=== PATIENT | female | born 1965 | race Caucasian/White ===

== ENCOUNTER 2020-01-15 22:01 | Observation (INO) ==
[2020-01-15] MEDS ORDERED: ONDANSETRON INJ 2 MG/ML 2 ML VIAL IV STA (22:09)
[2020-01-15] MEDS ORDERED: HYDROmorphone INJ 0.5 MG/0.5 ML SYR IV STA ×2 (22:09→22:21)
[2020-01-15] MEDS ORDERED: ONDANSETRON INJ 2 MG/ML 2 ML VIAL ONE (22:11)
[2020-01-15] MEDS ORDERED: SODIUM CHLORIDE 0.9% 1000ML 1,000 ML IV SCH ×2 (22:15→23:30)
--- NOTE | 2020-01-15 22:18 | Emergency Department Note ---
History of Present Illness General Chief complaint: Flank Pain Stated complaint: APPENDIX BURST Time Seen by Provider: 01/15/20 22:07 History of Present Illness Maximum Pain Intensity: 10 This is a 54-year-old female that presents to the emergency department via private vehicle with complaints of "left-sided flank pain". The patient states that about 45 minutes prior to arrival she began with abrupt onset of left-sided flank pain. No associated nausea, vomiting or diarrhea. Pain is a 10/10. She denies any chest pain, shortness of breath, fevers or chills. There is no pertinent past medical history, surgeries or allergies. No trouble urinating. No aggravating or alleviating factors. Home Medications Home Medications Medication Instructions Recorded Confirmed Type No Known Home Medications 01/15/20 01/15/20 History Allergies Allergy/AdvReac Type Severity Reaction Status Date / Time codeine Allergy Severe migraine, Verified 01/15/20 22:58 n/v oxycodone Allergy Severe migraine, Verified 01/15/20 22:58 n/v Past Med/Surg History Medical History No pertinent past medical history Surgical History No pertinent past surgical history Social History Preferred Language: Greek Communication Ability: Effective Beliefs That Will Affect Care: None Current Living Situation: Alone Other Information That Helps Us Care for You: No Feels Safe at Home: Yes Safety Concerns: Feels Safe At This Time Smoking Status: Never smoker Hx Alcohol Use: Yes Alcohol type: wine Hx Substance Use: No Review of Systems A total of 10 systems reviewed and were otherwise negative Physical Exam Vital Signs Vital Signs - 24 hr 01/15/20 22:04 01/15/20 22:18 01/15/20 23:21 Temperature 36.4 C L Temperature Source Oral Pulse Rate 80 73 Pulse Rate [Finger] 75 Pulse Rhythm Regular Pulse Rhythm [Finger] Regular Pulse Strength [Finger] Normal Respiratory Rate 20 20 18 Respiratory Effort / Characteristics Non-Labored Spontaneous Non-Labored Spontaneous Respiratory Depth Normal Normal Respiratory Pattern Regular Blood Pressure 141/87 H Blood Pressure [Right Arm] 123/80 Blood Pressure Mean 105 Blood Pressure Mean [Right Arm] 94 Blood Pressure Position Sitting Blood Pressure Position [Right Arm] Lying Pulse Oximetry 100 99 99 Oxygen Delivery Method Nasal Cannula Room Air Nasal Cannula Oxygen Flow Rate 2 Sepsis Recent Fever Within 48 Hours No Sepsis New/Unexplained Change in Mental Status No Sepsis Action Taken by Nursing No Action Required Oxygen Flow Rate - Titration Pulse Oximetry Post Tiitration 01/15/20 23:22 01/15/20 23:32 Temperature Temperature Source Pulse Rate Pulse Rate [Finger] 62 Pulse Rhythm Pulse Rhythm [Finger] Regular Pulse Strength [Finger] Normal Respiratory Rate 18 Respiratory Effort / Characteristics Non-Labored Spontaneous Respiratory Depth Normal Respiratory Pattern Regular Blood Pressure Blood Pressure [Right Arm] 116/70 Blood Pressure Mean Blood Pressure Mean [Right Arm] 85 Blood Pressure Position Blood Pressure Position [Right Arm] Lying Pulse Oximetry 87 L 97 Oxygen Delivery Method Room Air Room Air Oxygen Flow Rate 0 Sepsis Recent Fever Within 48 Hours Sepsis New/Unexplained Change in Mental Status Sepsis Action Taken by Nursing Oxygen Flow Rate - Titration 2 Pulse Oximetry Post Tiitration 99 VITAL SIGNS - Vital signs and nursing notes were reviewed. Stable and afebrile. GENERAL -54-year-old female appearing her stated age who appears to be in a tremendous amount of pain and is writhing on the examination bed holding her left flank/abdomen.. Communicates well with provider and answers questions appropriately. SKIN - Without rashes. No meningeal or petechial rash. HEAD - NC/AT. EYES - PERRL with EOMI bilaterally. Sclera anicteric. EARS - No deformities of external structures noted on gross examination bilaterally. NOSE - Midline and without cyanosis. No epistaxis or purulent drainage noted. MOUTH/OROPHARYNX - Without perioral cyanosis. NECK - Neck with FROM. Supple to palpation. No nuchal rigidity. LUNGS - Chest wall symmetric without accessory muscle use, intercostals retra ctions, or central cyanosis. Normal vesicular breath sounds CTA B/L. No wheezes, rales, or rhonchi appreciated. CARDIAC - RRR with S1/S2. No murmur, rubs, or gallops appreciated. ABDOMEN - Abdominal contour normal without pulsations or visible masses. BS normoactive all four quadrants. No tenderness, palpable masses, hepatosplenomegaly, or ascites noted. EXTREMITIES - No clubbing or peripheral cyanosis. No pretibial edema present. +5/5 strength noted in UE/LE bilaterally. NEUROLOGIC - Cranial nerves II through XII grossly intact. Sensory intact to light touch throughout. PSYCH - A&O, and cooperates fully with examiner. Pt is very pleasant and interacts well with examiner. Course Administered Medications Sodium Chloride (Nss 1000ml) 1,000 mls @ 125 mls/hr IV .Q8H PEDRO Stop: 02/15/20 01:20 Last Admin: 01/16/20 02:25 Dose: 125 mls/hr Documented by: [id number] Discontinued Medications Hydromorphone HCl (Dilaudid) 0.5 mg IV NOW STA Stop: 01/15/20 22:10 Last Admin: 01/15/20 22:13 Dose: 0.5 mg Documented by: [id number] Hydromorphone HCl (Dilaudid) 0.5 mg IV NOW STA Stop: 01/15/20 22:22 Last Admin: 01/15/20 22:23 Dose: 0.5 mg Documented by: [id number] Sodium Chloride (Nss 1000ml) 1,000 mls @ 999 mls/hr IV .Q1H1M PEDRO Stop: 01/15/20 23:15 Last Infusion: 01/15/20 23:18 Dose: 0 mls/hr Documented by: [id number] Admin: 01/15/20 22:13 Dose: 999 mls/hr Documented by: [id number] Sodium Chloride (Nss 1000ml) 1,000 mls @ 999 mls/hr IV .Q1H1M PEDRO Stop: 01/16/20 00:30 Last Infusion: 01/16/20 00:11 Dose: 0 mls/hr Documented by: [id number] Admin: 01/15/20 23:30 Dose: 999 mls/hr Documented by: [id number] Ketorolac Tromethamine (Toradol) 30 mg IV NOW ONE Stop: 01/16/20 00:05 Last Admin: 01/16/20 00:11 Dose: 30 mg Documented by: [id number] Ondansetron HCl (Zofran) 4 mg IV NOW STA Stop: 01/15/20 22:10 Last Admin: 01/15/20 22:13 Dose: 4 mg Documented by: [id number] Ondansetron HCl (Zofran) Confirm Administered Dose 4 mg .ROUTE .STK-MED ONE Stop: 01/15/20 22:12 Last Admin: 01/15/20 22:13 Dose: Not Given Documented by: [id number] Tamsulosin HCl (Flomax) 0.4 mg PO NOW ONE Stop: 01/15/20 23:24 Last Admin: 01/15/20 23:30 Dose: 0.4 mg Documented by: [id number] Medical Decision Making Laboratory Data Result diagrams: 01/15/20 22:10 01/15/20 22:10 Lab Results 01/15/20 01/15/20 01/15/20 Range/Units 22:10 22:10 23:34 WBC 7.64 (4.8-10.8) K/uL RBC 4.13 L (4.2-5.4) M/uL Hgb 12.3 (12.0-16.0) g/dL Hct 37.8 (37-47) % MCV 91.5 (80-100) fL MCH 29.8 (25-34) pg MCHC 32.5 (32-36) g/dL RDW Std Deviation 44.1 (36.4-46.3) fL RDW Coeff of Heladio 13.1 (11.5-14.5) % Plt Count 230 (130-400) K/uL MPV 10.4 (7.4-10.4) fL Immature Gran % (Auto) 0.3 % Neut % (Auto) 52.0 % Lymph % (Auto) 39.1 % [place] % (Auto) 6.0 % Eos % (Auto) 2.2 % Baso % (Auto) 0.4 % Immature Gran # (Auto) 0.02 (0.00-0.02) K/uL Neut # (Auto) 3.97 (1.4-6.5) K/uL Lymph # (Auto) 2.99 (1.2-3.4) K/uL [place] # (Auto) 0.46 (0.11-0.59) K/uL Eos # (Auto) 0.17 (0-0.5) K/uL Baso # (Auto) 0.03 (0-0.2) K/uL Sodium 140 (136-145) mmol/L Potassium 3.9 (3.5-5.1) mmol/L Chloride 109 H (98-107) mmol/L Carbon Dioxide 24 (21-32) mmol/L Anion Gap 7.0 (3-11) BUN 22 H (7-18) mg/dl Creatinine 0.99 (0.6-1.2) mg/dl Est Cr Clr Drug Dosing Not Reportable Est GFR ( Amer) 74.4 Est GFR (Non-Af Amer) 64.2 BUN/Creatinine Ratio 22.0 H (10-20) Glucose 128 H (70-99) mg/dl Calcium 9.2 (8.5-10.1) mg/dl Magnesium 2.1 (1.8-2.4) mg/dl Total Bilirubin 0.3 (0.2-1) mg/dl AST 24 (15-37) U/L ALT 29 (12-78) U/L Alkaline Phosphatase 74 (45-117) U/L Total Protein 7.3 (6.4-8.2) gm/dl Albumin 4.0 (3.4-5.0) gm/dl Globulin 3.3 (2.5-4.0) gm/dl Albumin/Globulin Ratio 1.2 (0.9-2) Lipase 233 (73-393) U/L Urine Color Yellow Urine Appearance Clear (Clear) Urine pH 5.0 (4.5-7.5) Ur Specific [place] 1.028 (1.000-1.030) Urine Protein Negative (Negative) Urine Glucose (UA) Negative (Negative) Urine Ketones Trace H (Negative) Urine Blood Negative (Negative) Urine Nitrite Negative (Negative) Urine Bilirubin Negative (Negative) Urine Urobilinogen Negative (Negative) Ur Leukocyte Esterase 1+ H (Negative) Urine WBC (Auto) 5-10 H (0-5) /hpf Urine RBC (Auto) 0-4 (0-4) /hpf U Hyaline Cast (Auto) 0 (0-5) /lpf U Epithel Cells (Auto) 10-20 H (0-5) /lpf Urine Bacteria (Auto) Negative (Negative) POC Ur Test (NEG) 01/15/20 Range/Units 23:34 WBC (4.8-10.8) K/uL RBC (4.2-5.4) M/uL Hgb (12.0-16.0) g/dL Hct (37-47) % MCV (80-100) fL MCH (25-34) pg MCHC (32-36) g/dL RDW Std Deviation (36.4-46.3) fL RDW Coeff of Heladio (11.5-14.5) % Plt Count (130-400) K/uL MPV (7.4-10.4) fL Immature Gran % (Auto) % Neut % (Auto) % Lymph % (Auto) % [place] % (Auto) % Eos % (Auto) % Baso % (Auto) % Immature Gran # (Auto) (0.00-0.02) K/uL Neut # (Auto) (1.4-6.5) K/uL Lymph # (Auto) (1.2-3.4) K/uL [place] # (Auto) (0.11-0.59) K/uL Eos # (Auto) (0-0.5) K/uL Baso # (Auto) (0-0.2) K/uL Sodium (136-145) mmol/L Potassium (3.5-5.1) mmol/L Chloride (98-107) mmol/L Carbon Dioxide (21-32) mmol/L Anion Gap (3-11) BUN (7-18) mg/dl Creatinine (0.6-1.2) mg/dl Est Cr Clr Drug Dosing Est GFR ( Amer) Est GFR (Non-Af Amer) BUN/Creatinine Ratio (10-20) Glucose (70-99) mg/dl Calcium (8.5-10.1) mg/dl Magnesium (1.8-2.4) mg/dl Total Bilirubin (0.2-1) mg/dl AST (15-37) U/L ALT (12-78) U/L Alkaline Phosphatase (45-117) U/L Total Protein (6.4-8.2) gm/dl Albumin (3.4-5.0) gm/dl Globulin (2.5-4.0) gm/dl Albumin/Globulin Ratio (0.9-2) Lipase (73-393) U/L Urine Color Urine Appearance (Clear) Urine pH (4.5-7.5) Ur Specific [place] (1.000-1.030) Urine Protein (Negative) Urine Glucose (UA) (Negative) Urine Ketones (Negative) Urine Blood (Negative) Urine Nitrite (Negative) Urine Bilirubin (Negative) Urine Urobilinogen (Negative) Ur Leukocyte Esterase (Negative) Urine WBC (Auto) (0-5) /hpf Urine RBC (Auto) (0-4) /hpf U Hyaline Cast (Auto) (0-5) /lpf U Epithel Cells (Auto) (0-5) /lpf Urine Bacteria (Auto) (Negative) POC Ur Test NEG (NEG) Imaging Data Radiologist's Impression: ABDOMEN AND PELVIS CT WITHOUT CONTRAST CT DOSE: 361.19 mGy.cm HISTORY: Acute left-sided flank pain L flank pain TECHNIQUE: Multiaxial CT images of the abdomen and pelvis were performed without contrast. A dose lowering technique was utilized adhering to the principles of ALARA. COMPARISON STUDY: None. FINDINGS: Mild dependent bibasilar atelectasis. No pneumatosis or pneumoperitoneum. Imaged inferior cardiac chambers are unremarkable. Spleen, pancreas, adrenal glands, gallbladder and unenhanced liver appear unremarkable. Mild left-sided hydrocele ureteral nephrosis secondary to an obstructing 5 x 3 x 5 mm calculus of the distal left ureter is noted approximately 2.5 cm proximal to the ureterovesicular junction. 4 mm nonobstructing calculus of the interpolar left kidney. 2 mm nonobstructing calculus of the superior pole right kidney. Urinary bladder, uterus and adnexa are unremarkable. Aorta and IVC are within normal limits. No adenopathy. No bowel obstruction or bowel wall thickening. Colonic diverticulosis without acute diverticulitis. Terminal ileum and appendix are unremarkable. No ascites or mesenteric inflammation. Tiny fat filled periumbilical hernia. The breast parenchyma and soft tissues are otherwise unremarkable. Degenerative changes of the spine, pelvis and hips. Mild convex right curvature of the upper lumbar spine. Transitional lumbosacral anatomy. No acute fracture. IMPRESSION: 1. Mild left-sided hydroureteronephrosis secondary to an obstructing 5 x 3 x 5 mm calculus of the distal left ureter approximately 2.5 cm proximal to the ureterovesicular junction. 2. Nonobstructing bilateral nephrolithiasis. 3. No bowel obstruction or bowel wall thickening. Normal appendix. ACT 112: Negative or not required by law. The above report was generated using voice recognition software. It may contain grammatical, syntax or spelling errors. Results electronically sent 01/15/2020 11:07 PM to: Glen Fraser PA-C Electronically signed by: Pro Jarrett M.D. 01/15/2020 11:07 PM MDM Narrative Patient was seen and evaluated as above in room A3. Review was performed of nursing notes and vital signs. After obtaining a thorough history and physical examination the above work up was performed. She presents to us today with abrupt onset of left flank pain. She is appearing to be in a fair amount of pain on examination. IV access was established. She was given IV Dilaudid and Zofran as well as fluids. She was reevaluated minimal improvement and was given more Dilaudid. She was reevaluated and feeling much better. She was placed on oxygen as she did desat into the high 80s. CT scan was obtained and did reveal a 5 x 3 x 5 calculus of the distal left ureter that was causing mild left-sided hydroureteronephrosis. She was given a copy of the report. No leukocytosis or concerning anemia. No emergent metabolic disturbance. Mild elevation of BUN at 22. Urinalysis does not reveal infection. UPT negative. Patient initially was going to be discharged as it was her preference but the pain continued to return and she was given Toradol and she preferred to stay in the hospital which I believe is reasonable given her level of pain at this time. I consulted the hospitalist. Please refer to further documentation regarding her stay. In the evaluation and treatment of this patient the following differential diagnosis entertained: Fracture, dislocation, subluxation, cauda equina syndrome, AAA, diverticulitis, appendicitis, torsion, ureteral calculi, osteomyelitis, piriformis syndrome, strain, sprain, among others. Impression & Plan Ureteral obstruction, left, Ureteral calculus, left, Hydronephrosis Discharge Plan Visit Data *Final* Discharge Date/Time: 01/16/20 01:04 Chief Complaint: Flank Pain Stated Complaint: APPENDIX BURST ED Provider: Edmond Tinsley ED Midlevel Provider: Glen Fraser Discharge Problem: Ureteral obstruction, left, Ureteral calculus, left, Hydronephrosis Patient Disposition: Admitted As Inpatient Discharge Instructions Interventions: ED Discharge Assessment Last Done: 01/16/20 01:04
[2020-01-15 22:27] LABS: Basophils # (auto) 0.03 K/uL (0-0.2); Basophils % (auto) 0.4 %; Eosinophils # (auto) 0.17 K/uL (0-0.5); Eosinophils % (auto) 2.2 %; Hematocrit (blood only) 37.8 % (37-47); Hemoglobin 12.3 g/dL (12.0-16.0); Immature Granulocytes # (auto) 0.02 K/uL (0.00-0.02); Immature Granulocytes % (auto) 0.3 %; Lymphocytes # (auto) 2.99 K/uL (1.2-3.4); Lymphocytes % (auto) 39.1 %; Mean Corpuscular Hemoglobin 29.8 pg (25-34); Mean Corpuscular Hgb Conc 32.5 g/dL (32-36); Mean Corpuscular Volume 91.5 fL (80-100); Mean Platelet Volume 10.4 fL (7.4-10.4); Monocytes # (auto) 0.46 K/uL (0.11-0.59); Neutrophils # (auto) 3.97 K/uL (1.4-6.5); Platelet Count 230 K/uL (130-400); RDW Coefficient of Variation 13.1 % (11.5-14.5); RDW Standard Deviation 44.1 fL (36.4-46.3); Red Blood Count 4.13 M/uL (4.2-5.4); White Blood Count 7.64 K/uL (4.8-10.8)
[2020-01-15 22:45] LABS: Alanine Aminotransferase 29 U/L (12-78); Aspartate Aminotransferase 24 U/L (15-37); Blood Urea Nitrogen 22 mg/dl (7-18); Calcium 9.2 mg/dl (8.5-10.1); Carbon Dioxide 24 mmol/L (21-32); Chloride 109 mmol/L (98-107); Est GFR (African American) 74.4; Est GFR (Non-African American) 64.2; Glucose 128 mg/dl (70-99); Lipase 233 U/L (73-393); Magnesium 2.1 mg/dl (1.8-2.4); Potassium 3.9 mmol/L (3.5-5.1); Sodium 140 mmol/L (136-145)
[2020-01-15 22:54] LABS: Albumin Globulin Ratio 1.2 (0.9-2); Alkaline Phosphatase 74 U/L (45-117); Bilirubin,Total 0.3 mg/dl (0.2-1); Globulin 3.3 gm/dl (2.5-4.0); Total Protein 7.3 gm/dl (6.4-8.2)
--- NOTE | 2020-01-15 23:08 | CT Scan Report ---
ABDOMEN AND PELVIS CT WITHOUT CONTRAST CT DOSE: 361.19 mGy.cm HISTORY: Acute left-sided flank pain L flank pain TECHNIQUE: Multiaxial CT images of the abdomen and pelvis were performed without contrast. A dose lo wering technique was utilized adhering to the principles of ALARA. COMPARISON STUDY: None. FINDINGS: Mild dependent bibasilar atelectasis. No pneumatosis or pneumoperitoneum. Imaged inferior cardiac mak mbers are unremarkable. Spleen, pancreas, adrenal glands, gallbladder and unenhanced liver appear unr emarkable. Mild left-sided hydrocele ureteral nephrosis secondary to an obstructing 5 x 3 x 5 mm calc ulus of the distal left ureter is noted approximately 2.5 cm proximal to the ureterovesicular junctio n. 4 mm nonobstructing calculus of the interpolar left kidney. 2 mm nonobstructing calculus of the blair perior pole right kidney. Urinary bladder, uterus and adnexa are unremarkable. Aorta and IVC are with in normal limits. No adenopathy. No bowel obstruction or bowel wall thickening. Colonic diverticulosis without acute diverticulitis. T erminal ileum and appendix are unremarkable. No ascites or mesenteric inflammation. Tiny fat filled p eriumbilical hernia. The breast parenchyma and soft tissues are otherwise unremarkable. Degenerative changes of the spine, pelvis and hips. Mild convex right curvature of the upper lumbar spine. Transit ional lumbosacral anatomy. No acute fracture. IMPRESSION: 1. Mild left-sided hydroureteronephrosis secondary to an obstructing 5 x 3 x 5 mm calculus of the dis edward left ureter approximately 2.5 cm proximal to the ureterovesicular junction. 2. Nonobstructing bilateral nephrolithiasis. 3. No bowel obstruction or bowel wall thickening. Normal appendix. ACT 112: Negative or not required by law. The above report was generated using voice recognition software. It may contain grammatical, syntax o r spelling errors. Results electronically sent 01/15/2020 11:07 PM to: Glen Fraser PA-C Electronically signed by: Pro Jarrett M.D. 01/15/2020 11:07 PM
[2020-01-15] MEDS ORDERED: TAMSULOSIN HCL 0.4 MG CAP PO ONE (23:23)
[2020-01-15 23:50] LABS: Appearance Urine Clear (Clear); Bacteria Urine Automated Negative (Negative); Bilirubin Urine Negative (Negative); Blood Urine Negative (Negative); Cast Urine Automated 0 /lpf (0-5); Color Urine Yellow; Glucose Urine UA Negative (Negative); Ketones Urine Trace (Negative); Leukocyte Esterase Urine 1+ (Negative); Nitrite Urine Negative (Negative); Protein Urine Negative (Negative); RBC Urine Automated 0-4 /hpf (0-4); Specific Gravity Urine 1.028 (1.000-1.030); Urobilinogen Urine Negative (Negative)
[2020-01-16] MEDS ORDERED: KETOROLAC 30 MG/ML VIAL IV ONE (00:04)
[2020-01-16] MEDS ORDERED: KETOROLAC TROMETHAMINE 15 MG/ML VIAL IV PRN (01:21)
[2020-01-16] MEDS ORDERED: POLYETHYLENE (MIRALAX) 17 GM PACK PO PRN (01:21)
[2020-01-16] MEDS ORDERED: ACETAMINOPHEN 325 MG TAB PO PRN (01:21)
[2020-01-16] MEDS ORDERED: HYDROmorphone INJ 0.5 MG/0.5 ML SYR IV PRN (01:21)
[2020-01-16] MEDS ORDERED: SODIUM CHLORIDE 0.9% 1000ML 1,000 ML IV SCH (01:21)
[2020-01-16] MEDS ORDERED: ONDANSETRON INJ 2 MG/ML 2 ML VIAL IV PRN (01:21)
--- NOTE | 2020-01-16 02:06 | History and Physical Report ---
DATE OF ADMISSION: 01/15/2020 CHIEF COMPLAINT: Left flank pain. HISTORY OF PRESENT ILLNESS: This is 54-year-old female with no significant past medical history. The patient is from [place], visiting [facility] to her sister's place, presents with severe left flank pain, and nausea. Denies any fever, chills. CT of abdomen and pelvis done in the ER which showed 5mm left obstructing ureteral stone. The patient was given initially Dilaudid couple of doses and Flomax,then pain subsided and, initially plan was to send her home and follow as outpatient, but the pain came back and given a dose of Toradol, at that time, it was decided to observe the patient in the hospital. The patient states the Toradol did not helped her much, but does not want any more pain medication currently. Denies any other complaints. Denies any headache, no dizziness, no blurred visions, no earache, no runny nose, no sore throat, no cough, no fever, no chills, no dysphagia. Otherwise, appetite is okay. No chest pain, no shortness of breath. Normal bowel and bladder movements. No hematuria or burning micturition. No swelling in the legs, no rash, no easy bleeding or easy bruising. Otherwise, active. She lives alone in [place]. Denies any history of kidney stones in the past but says her mother had history of kidney stones. ALLERGIES: TO CODEINE, OXYCODONE CAUSES MIGRAINE. PAST MEDICAL HISTORY: Denies any past medical history. PAST SURGICAL HISTORY: Denies any past surgical history. MEDICATIONS: Denies any medications. FAMILY HISTORY: Mother had kidney stones. Father had heart disorder and brother had brain aneurysm. SOCIAL HISTORY: Denies any smoking, alcohol rarely. Lives alone, she lives in [place], coming to visit her sister. REVIEW OF SYMPTOMS: As per HPI. Rest of review of symptoms negative. PHYSICAL EXAMINATION: GENERAL: The patient is of moderate build, not in acute distress, seemed to be in pain. VITAL SIGNS: Temperature 36.4, pulse 62, respiratory rate 18, blood pressure 116/70, oxygen 97% on room air. HEENT: No pallor, no icterus. Pupils equal, round, reactive to light. NECK: No neck masses. Supple. CARDIOVASCULAR: S1, S2 heard, regular rate and rhythm, no murmur, no gallop. RESPIRATORY SYSTEM: Normal AP diameter. No accessory muscle use. No wheezing, no crackles. ABDOMEN: Soft, bowel sounds present. Left lower quadrant tenderness present. Mild guarding, no rigidity. No CVA tenderness present. No distention. CENTRAL NERVOUS SYSTEM: Cranial nerves II-XII grossly intact. Nonfocal. EXTREMITIES: No edema, no erythema. LABORATORY DATA: WBC 7.6, hemoglobin 12.3, hematocrit 37.8, platelets 230. Sodium 140, potassium 3.9, chloride 109, bicarbonate 24, BUN 22, creatinine 0.9, serum glucose 128, calcium 9.2, magnesium 2.1, total bilirubin 0.3, AST 24, ALT 29, alkaline phosphatase 74, lipase 233. Urinalysis, trace ketones, +1 leukocyte esterase. Urine bacteria negative. POC urine test negative. CT of abdomen and pelvis shows mild left hydroureteronephrosis secondary to an obstructing 5 mm calculus of the distal left ureter approximately 2.5 cm proximal to UVJ junction, nonobstructing bilateral nephrolithiasis, no bowel obstruction or bowel wall thickening, normal appendix. ASSESSMENT AND PLAN: This is a 54-year-old female who presents with severe left flank pain and found to have obstructing 5 mm left ureteral stone. 1. Renal colic, severe left flank pain. CAT scan showing 5 mm left ureteral stone, 2.5 cm above UVJ causing mild hydroureteronephrosis. Will monitor in medical floor, pain control with IV Dilaudid p.r.n., IV Toradol p.r.n. We will keep her n.p.o., IV fluids, on IV normal saline 125 mL per hour, IV antiemetics, and consult urology in the a.m. for further recommendations. UA shows +1 leukocyte esterase, but no bacteria seen. No leukocytosis and afebrile. We will follow the urine cultures. 2. Deep venous thrombosis prophylaxis, sequential compression devices. DISPOSITION: Admit to medical floor. Expect to discharge home and follow with family doctor. Level 1 full code. MTDD
[2020-01-16 07:27] VITALS: BP 100/60; PULSE 76; TEMP 97.5; O2SAT 96
--- NOTE | 2020-01-16 07:53 | Urology Consultation ---
Date of Consultation January 16, 2020 Assessment & Plan (1) Ureteral calculus, left: (2) Ureteral obstruction, left: 54yo F with 5mm distal left stone, mild hydronephrosis; bilateral renal stones. Stable kidney function, pain controlled with toradol. Afebrile, VSS. No surgical intervention required today given pt's stable state. Wishes to discharge home and attempt to pass spontaneously as she is from [place] and flies home tomorrow. She understands if she develops a fever/severe pain she must seek medical attention. Will check KUB today for visibility/check migration. Please provide CT and KUB imaging discs and reports for pt prior to discharge to follow with Urologist at home. Okay to discharge home with flomax, empiric antibiotics, toradol PO as she cannot have narcotic pain medication due to side effects. Case discussed with Dr. Ramires and agreeable to plan. Primary team made aware, okay to provide diet. Thank you for allowing us to participate in the acute care of Ms. Pickering. Please reconsult us with additional questions, concerns or changes in patient status. History of Present Illness Reason for Consultation: stone Requesting Physician: stone Attending Physician: Steven Thomas MD History of Present Illness 54yo F with no major past medical history presents to [facility] for acute right flank pain, 08/21. Diagnosed with 5mm distal left ureteral stone, mild hydronephrosis. bilateral renal stones. Cr and WBC WNL. Pain controlled with toradol, flomax and IVFs. Able to get some rest through the night, feeling well today. Straining all urine, denies spontaneous passage. Friend at bedside. States her mother also with kidney stones. Pts first stone however follows with urologist back home in [place] for UTIs, bladder pain. Plans to fly home tomorrow. Allergies Allergy/AdvReac Type Severity Reaction Status Date / Time codeine Allergy Severe migraine, Verified 01/15/20 22:58 n/v oxycodone Allergy Severe migraine, Verified 01/15/20 22:58 n/v Home Medications Home Medications Medication Instructions Recorded Confirmed Type No Known Home Medications 01/15/20 01/15/20 History acetaminophen 1,000 mg PO Q8H PRN #60 tab 01/16/20 Rx amoxicillin 500 mg PO TID #21 cap 01/16/20 Rx ketorolac 10 mg PO Q8H PRN #10 tab 01/16/20 Rx tamsulosin 0.4 mg PO HS #7 cap 01/16/20 Rx Patient History Medical History No pertinent past medical history Surgical History No pertinent past surgical history Social History Preferred Language: Thai Communication Ability: Effective Beliefs That Will Affect Care: None Current Living Situation: Alone Other Information That Helps Us Care for You: No Feels Safe at Home: Yes Safety Concerns: Feels Safe At This Time Smoking Status: Never smoker Hx Alcohol Use: Yes Alcohol type: wine Hx Substance Use: No Review of Systems Review of Systems: All systems reviewed & are unremarkable except as noted in HPI & below Constitutional: no fever and no chills Eyes: no problem reported Ear, Nose, Mouth, Throat: no ear pain and no dizziness Respiratory: no cough and no dyspnea Cardiovascular: no chest pain and no dyspnea Gastrointestinal: no abdominal pain, no nausea and no vomiting Musculoskeletal: no neck pain and no joint pain Integumentary: no acne and no rash Neurologic: no falls and no numbness Psychiatric: no hopelessness Endocrine: no polydipsia and no polyphagia Hematologic / Lymphatic: no coagulopathy and no lymphadenopathy Allergy / Immunological: no lip swelling Physical Exam Constitutional: comfortable; no acute distress, not ill appearing, no altered mental status and not lethargic Eyes: no nystagmus ENMT: Ears: no hearing impairment Neck: trachea midline Respiratory: no respiratory distress, does not use accessory muscles, no cough and no grunting Cardiovascular: Vessels: no JVD Extremities: no edema Chest (Breasts): Chest: normal inspection of chest Gastrointestinal (Abdomen): Inspection/Auscultation: abdomen not distended and no abdominal edema Percussion/Palpation: abdomen soft; abdomen nontender Musculoskeletal: no cyanosis or clubbing, extremities motor strength 5/5 Head/Neck/Chest: normocephalic and head atraumatic Extremities: extremities normal to inspection Skin: no rashes, warm and dry Neurologic: awake; not confused and not obtunded Psychiatric: Orientation: alert and oriented x 3 Eye Contact: good eye contact Affect: no depressed affect Lymphatic: no lymphadenopathy and no lymphedema Results & Data Vital Signs (Past 12 Hours) Vital Signs Temp Pulse Pulse Resp BP BP Pulse Ox 01/16/20 07:26 36.4 C L 76 16 100/60 96 01/16/20 01:22 36.7 C 67 20 131/75 97 01/15/20 23:32 62 18 116/70 97 01/15/20 23:22 87 L 01/15/20 23:21 75 18 123/80 99 01/15/20 22:18 73 20 99 01/15/20 22:04 36.4 C L 80 20 141/87 H 100 PG Care Time/CCT Total # of Minutes Spent Total Time Spent with Patient: Total time spent is greater than 50% in coordination of care (as documented) at patient's floor/unit and/or counseling patient: Coding Level of Care Code 28819 Inpt Consult Level 4 Diagnoses Ureteral calculus, left N20.1 Ureteral obstruction, left N13.5
--- NOTE | 2020-01-16 10:10 | XRay Report ---
XR KUB/Abdomen 1 view CLINICAL HISTORY: 54 years-old Female presenting with left distal stone migration. TECHNIQUE: Single supine view of the abdomen was obtained. COMPARISON: CT of abdomen and pelvis from 01/15/2020. FINDINGS: Nonobstructive bowel gas pattern. No gross pneumoperitoneum. Left nephrolithiasis evident on CT not well appreciated on this radiograph secondary to bowel gas and stool pattern. The recently demonstrated distal left ureteral calculus remains in place measure appr oximately 5 mm. No radiographic evidence of right renal or right ureteral calculi. Mild dextroscoliosis of the lumbar spine. Lung bases clear. IMPRESSION: 1. Unchanged position of the distal left ureteral calculus. 2. Underlying left nephrolithiasis evident on CT not well demonstrated on this radiograph. ACT 112: Negative or not required by law. Results electronically sent 01/16/2020 10:08 AM to: ACOSTA Graves Electronically signed by: Jean Dorsey M.D. 01/16/2020 10:08 AM
--- NOTE | 2020-01-16 10:59 | Hospitalist Progress Note ---
Date of Service January 16, 2020 Assessment & Plan (1) Ureteral calculus, left: Presented to ED with severe left flank pain and nausea. No fever, chills, dysuria, hematuria. CT of abdomen pelvis demonstrated 5 mm calculus in the distal ureter with associated mild left hydronephrosis. Patient admitted for further evaluation and management. Received IV fluids, antiemetics, analgesics. Pain resolved. Follow-up KUB demonstrated calculus in left distal ureter, position unchanged. Seen in consultation by Urology. Patient is from [place], visiting her sister in the [facility]. She has plans to return to [place] tomorrow and therefore it was felt best not to undergo any procedures at this time. Asymptomatic morning of discharge. No fever. UA does not appear to be infected. Urology recommends prophylactic antibiotic therapy, tamsulosin, analgesics. Strain urine and save calculus for analysis if passed. Follow-up with PCP and, if necessary, Urology upon returning home. Patient was given copies of diagnostic imaging studies to share with her providers in [place]. (2) Ureteral obstruction, left: As noted above. (3) Hydronephrosis: As noted above. (4) DVT prophylaxis: Low risk for VTE per IMPROVE Risk Assessment Model. VTE prophylaxis not indicated. Ambulating. (5) Discharge planning issues: Discharge to home. Follow-up with her PCP in [place]: Dr. Dalia Squires [address] [place] [address] (Tried to call Dr. Squires x 2 to give her update, but no answer.) Admission and Anticipated Discharge Date Admission Date: January 16, 2020 Subjective Recheck for ureteral calculus. Patient seen in their room around 1140. Feels much better. No flank or abdominal pain. No fever, chills, sweats. No dysuria or hematuria. Anxious to go home. Physical Exam Constitutional: no acute distress Respiratory: no respiratory distress Auscultation: lungs clear to auscultation bilaterally Cardiovascular: Rate/Rhythm: regular rate and regular rhythm Vessels: no JVD Extremities: no calf tenderness and no edema Gastrointestinal (Abdomen): normal bowel sounds, soft, nontender, no hepatospl enomegaly Musculoskeletal: mild left CVA tenderness Skin: no rashes, warm and dry Psychiatric: Orientation: alert and oriented x 3 Results & Data ([facility]) Vital Signs (Past 12 Hours) Vital Signs Temp Pulse Resp BP Pulse Ox 01/16/20 07:26 36.4 C L 76 16 100/60 96 01/16/20 01:22 36.7 C 67 20 131/75 97 01/15/20 23:32 62 18 116/70 97 01/15/20 23:22 87 L 01/15/20 23:21 75 18 123/80 99 Laboratory Results 01/15/20 22:10 01/15/20 22:[address] ABDOMEN + PELVIS IMPRESSION: 1. Mild left-sided hydroureteronephrosis secondary to an obstructing 5 x 3 x 5 mm calculus of the distal left ureter approximately 2.5 cm proximal to the ureterovesicular junction. 2. Nonobstructing bilateral nephrolithiasis. 3. No bowel obstruction or bowel wall thickening. Normal appendix. ACT 112: Negative or not required by law. The above report was generated using voice recognition software. It may contain grammatical, syntax or spelling errors. Electronically signed by: Pro Jarrett M.D. 01/15/2020 11:07 PM KUB IMPRESSION: 1. Unchanged position of the distal left ureteral calculus. 2. Underlying left nephrolithiasis evident on CT not well demonstrated on this radiograph. ACT 112: Negative or not required by law. Electronically signed by: Jean Dorsey M.D. 01/16/2020 10:08 AM
[2020-01-16] MEDS ORDERED: TAMSULOSIN HCL 0.4 MG CAP PO SCH (21:00)
--- NOTE | 2020-01-17 08:01 | Discharge Summary ---
Date of Service Date of Admission: 01/16/20 Date of Discharge: 01/16/20 Admission HPI Per Admitting Provider This is 54-year-old female with no significant past medical history. The patient is from [place], visiting [facility] to her sister's place, presents with severe left flank pain, and nausea. Denies any fever, chills. CT of abdomen and pelvis done in the ER which showed 5mm left obstructing ureteral stone. The patient was given initially Dilaudid couple of doses and Flomax,then pain subsided and, initially plan was to send her home and follow as outpatient, but the pain came back and given a dose of Toradol, at that time, it was decided to observe the patient in the hospital. The patient states the Toradol did not helped her much, but does not want any more pain medication currently. Denies any other complaints. Denies any headache, no dizziness, no blurred visions, no earache, no runny nose, no sore throat, no cough, no fever, no chills, no dysphagia. Otherwise, appetite is okay. No chest pain, no shortness of breath. Normal bowel and bladder movements. No hematuria or burning micturition. No swelling in the legs, no rash, no easy bleeding or easy bruising. Otherwise, active. She lives alone in [place]. Denies any history of kidney stones in the past but says her mother had history of kidney stones. Principal Diagnosis left ureteral calculus left hydronephrosis bilateral renal calculi Discharge Data Allergies Allergy/AdvReac Type Severity Reaction Status Date / Time codeine Allergy Severe migraine, Verified 01/15/20 22:58 n/v oxycodone Allergy Severe migraine, Verified 01/15/20 22:58 n/v Consultations 01/16/20 00:18 ED Decision to Admit Stat 01/16/20 08:00 Consult Urology Routine 01/16/20 09:02 Consult Health Information Management Routine 01/16/20 10:25 Burn CD for patient Routine Ordered Studies 01/15/20 22:10 CT abd pelvis wo con Urgent Hospital Course (1) Ureteral calculus, left: Presented to ED with severe left flank pain and nausea. No fever, chills, dysuria, hematuria. CT of abdomen pelvis demonstrated 5 mm calculus in the distal left ureter with associated mild left hydronephrosis. Bilateral renal calculi were also noted. Patient admitted for further evaluation and management. Received IV fluids, antiemetics, analgesics. Pain resolved. Follow-up KUB demonstrated calculus in left distal ureter, position unchanged. Seen in consultation by Urology. Patient is from [place], visiting her sister in the [facility]. She has plans to return to [place] tomorrow and therefore it was felt best not to undergo any procedures at this time. Asymptomatic morning of discharge. No fever. UA does not appear to be infected. Urology recommends prophylactic antibiotic therapy, tamsulosin, analgesics. Strain urine and save calculus for analysis if passed. Follow-up with PCP and, if necessary, Urology upon returning home. Patient was given copies of diagnostic imaging studies to share with her providers in [place]. (2) Ureteral obstruction, left: As noted above. (3) Hydronephrosis: As noted above. (4) DVT prophylaxis: Low risk for VTE per IMPROVE Risk Assessment Model. VTE prophylaxis not indicated. Ambulating. (5) Discharge planning issues: Discharge to home. Follow-up with her PCP in [place]: Dr. Dalia Squires [address] [place] [address] (Tried to call Dr. Squires x 2 to give her update, but no answer.) Total Time Total Time Spent Total Time Spent (In Minutes): 30 Discharge Plan Discharge Items Patient Disposition: Home - Self-Care Reason For Visit: LEFT FLANK PAIN Discharge Diagnosis: kidney stone Condition on Discharge: Good Activity: Resume your previous activity Non-emergency contact: Primary Care Provider and Hospitalist Call non-emergency contact if: you have any medication questions, your symptoms worsen and your temperature is above 101 Follow-up/Referrals: PT,DECLINED [Primary Care Provider] - Diet: Regular Addtl Attending Provider Instructions: MEDICATION CHANGES: Take amoxicillin 500 mg 3 times a day to help prevent kidney infection. Take tamsulosin (Flomax) at bedtime to help pass stone. May cause dizziness. OK to stop once you pass the stone. Take acetaminophen (Tylenol Extra Strength) as needed for moderate pain. Take ketorolac (Toradol) as needed for severe pain. SUMMARY OF TEST RESULTS: CT scan showed: kidney stones in both kidneys kidney stone stuck in left ureter some swelling of left kidney due to blockage in ureter RECOMMENDATIONS FOR FOLLOW-UP: See your family doctor as soon as possible once you get back home. OTHER INSTRUCTIONS: Drink plenty of fluids. Strain your urine until the kidney stone passes. Save kidney stone for your provider to send to lab. Seek medical attention if you have: * temperature above 101 * chest pain or trouble breathing * abdominal pain, nausea, vomiting * diarrhea, dark stools or bloody stools * severe back pain, trouble urinating, blood in urine, burning when you urinate * any unanswered questions or concerns Call 911 if symptoms are severe. Please take good care of yourself. Call if you have any questions or problems. You can reach a [facility] hospitalist on duty at [facility] 24 hours a day by calling [phone]. My cell # is [phone]. Pending Studies at Discharge: No Stand-Alone Forms: My [facility], Smoking Cessation Medications and DC Order Prescriptions: New tamsulosin 0.4 mg Capsule 0.4 mg PO HS Qty: 7 RF: 0 ketorolac 10 mg tablet 10 mg PO Q8H PRN (Reason: pain, severe) Qty: 10 RF: 0 acetaminophen 500 mg tablet 1,000 mg PO Q8H PRN (Reason: fever or pain) Qty: 60 RF: 0 amoxicillin 500 mg capsule 500 mg PO TID Qty: 21 RF: 0 No Action No Known Home Medications RF: 0 Discharge Orders: Discharge Order (Routine); Ordered 01/16/20 Ordered By: Steven Gay/Other Patient Handouts: Anatomy Urinary Tract Fem, Kidney Stones, Kidney Stones Prevent Admission Data Admit Date/Time: 01/16/20 00:47 Attending Provider: Steven Thomas Admit Provider: Thanh De Dios Primary Care Provider: PT,DECLINED Other Providers: Rony Olguin ; Thanh De Dios Other Interventions: Discharge Summary Assessment (RN) Last Done: 01/16/20 11:20 DC Date/Time DO NOT enter until pt leaves facility: 01/16/20 12:23
== END 2020-01-16 12:23 | disposition home or self-care (01) | DRG 694 ==
LOC: ED 22:01 → 3N 01-16 00:47 → INTOOBSV 01-16 00:47 → 3N 01-16 01:04